=== PATIENT | female | born 1990 | race Caucasian/White ===

== ENCOUNTER 2017-07-11 10:36 | Inpatient (IN) | payer MEDICAID, OTHER ==
[~2017-07-11] VITALS: Ht 154.9 cm; Wt 56.8 kg
[2017-07-11 10:47] VITALS: BP 98/53
[2017-07-11 11:41] LABS: HEMATOCRIT 33.3 % (34.6-47.8); HEMOGLOBIN 11.2 g/dL (11.7-16.4); WHITE BLOOD COUNT 9.5 x10^3/uL (3.4-10)
[2017-07-11] MEDS ORDERED: BETAMETHASONE 6 MG/ML, 5ML IM ONE (13:18)
[2017-07-11] MEDS: BETAMETHASONE 6 MG/ML, 5ML IM SCH (13:24)
[2017-07-11 13:59] LABS: DAU SCREEN DISCLAIMER
[2017-07-11] MEDS ORDERED: PREN-3 PO (14:03)
[2017-07-11] MEDS ORDERED: AMPICILLIN 2 GM in SODIUM CHLORIDE 0.9% 100 ML IV ONE (17:00)
[2017-07-11] MEDS: LACTATED RINGERS 1,000 ML IV SCH (17:04)
[2017-07-11] MEDS ORDERED: MAGNESIUM SULF. PMX 20GM/500ML 500 ML IV ONE (17:27)
[2017-07-11] MEDS: MAGNESIUM SULF. PMX 20GM/500ML 500 ML IV SCH (17:38)
[2017-07-11] MEDS ORDERED: NITROFURANTOIN (MACROBID) 100 MG CAPSULE ONE (17:41)
[2017-07-11] MEDS: NITROFURANTOIN (MACROBID) 100 MG CAPSULE PO SCH (17:42)
[2017-07-11] MEDS ORDERED: INSULIN ASPART 100 UNITS/ML, PEN SQ-INSULIN ONE (19:00)
[2017-07-11] MEDS ORDERED: NITROFURANTOIN (MACROBID) 100 MG CAPSULE PO SCH (21:00)
[2017-07-11] MEDS ORDERED: INSULIN NPH HUMAN 100 UNIT/ML, 3ML VIAL SQ-INSULIN ONE (22:00)
[2017-07-11] MEDS: AMPICILLIN 1 GM in SODIUM CHLORIDE 0.9% 50 ML IV SCH (23:29)
[2017-07-12] MEDS: LACTATED RINGERS 1,000 ML IV SCH ×2 (01:00→16:08)
[2017-07-12] MEDS ORDERED: MAGNESIUM SULF. PMX 20GM/500ML 500 ML IV ONE ×3 (03:36→23:03)
[2017-07-12] MEDS: MAGNESIUM SULF. PMX 20GM/500ML 500 ML IV SCH ×3 (03:40→23:06)
[2017-07-12] MEDS: AMPICILLIN 1 GM in SODIUM CHLORIDE 0.9% 50 ML IV SCH ×4 (05:00→23:01)
[2017-07-12] MEDS ORDERED: INSULIN NPH HUMAN 100 UNIT/ML, 3ML VIAL SQ-INSULIN ONE ×2 (06:30→21:00)
[2017-07-12] MEDS ORDERED: INSULIN ASPART 100 UNITS/ML, PEN SQ-INSULIN ONE ×4 (07:00→20:35)
[2017-07-12 07:30] VITALS: BP 106/63
[2017-07-12] MEDS ORDERED: NITROFURANTOIN (MACROBID) 100 MG CAPSULE ONE (08:53)
[2017-07-12] MEDS: NITROFURANTOIN (MACROBID) 100 MG CAPSULE PO SCH ×3 (08:59→21:21)
[2017-07-12] MEDS ORDERED: INSULIN ASPART 100 UNITS/ML, PEN SQ-INSULIN SCH (09:30)
[2017-07-12] MEDS: BETAMETHASONE 6 MG/ML, 5ML IM SCH (13:24)
[2017-07-12] MEDS ORDERED: DOCUSATE 100 MG CAPSULE ONE (16:10)
[2017-07-12] MEDS ORDERED: PRENATAL VIT/IRON/FA 1 EACH TABLET ONE (16:10)
[2017-07-12] MEDS: DOCUSATE 100 MG CAPSULE PO SCH (16:11)
[2017-07-12] MEDS: PRENATAL VIT/IRON/FA 1 EACH TABLET PO SCH (16:11)
[2017-07-12] MEDS ORDERED: NPH,100V SQ-INSULIN ×2 (16:28→16:30)
[2017-07-12] MEDS ORDERED: ACETAMINOPHEN 325 MG TABLET ONE (19:24)
[2017-07-12] MEDS: ACETAMINOPHEN 325 MG TABLET PO PRN (19:26)
[2017-07-12 23:47] LABS: PATH.CAST-FLAG NOT PRESENT; SPERM-FLAG NOT PRESENT; SRC-FLAG NOT PRESENT; XTAL-FLAG NOT PRESENT; YLC-FLAG NOT PRESENT
[2017-07-13] MEDS: LACTATED RINGERS 1,000 ML IV SCH ×2 (05:00→19:53)
[2017-07-13] MEDS: AMPICILLIN 1 GM in SODIUM CHLORIDE 0.9% 50 ML IV SCH ×4 (05:00→23:11)
[2017-07-13 05:54] LABS: ASPARTATE AMINO TRANSFERASE 7 U/L (15-37); BLOOD UREA NITROGEN 11 mg/dL (7-18)
[2017-07-13] MEDS ORDERED: ACETAMINOPHEN 325 MG TABLET ONE (07:14)
[2017-07-13] MEDS: ACETAMINOPHEN 325 MG TABLET PO PRN (07:15)
[2017-07-13] MEDS ORDERED: INSULIN NPH HUMAN 100 UNIT/ML, 3ML VIAL SQ-INSULIN STA (07:20)
[2017-07-13] MEDS: INSULIN ASPART 100 UNITS/ML, PEN SQ-INSULIN SCH ×2 (07:37→19:56)
[2017-07-13] MEDS: DOCUSATE 100 MG CAPSULE PO SCH ×2 (09:00→21:13)
[2017-07-13] MEDS: NITROFURANTOIN (MACROBID) 100 MG CAPSULE PO SCH ×2 (09:42→21:12)
[2017-07-13] MEDS ORDERED: PRENATAL VIT/IRON/FA 1 EACH TABLET ONE (09:46)
[2017-07-13] MEDS ORDERED: MAGNESIUM SULF. PMX 20GM/500ML 500 ML IV ONE ×2 (09:48→19:45)
[2017-07-13] MEDS: MAGNESIUM SULF. PMX 20GM/500ML 500 ML IV SCH ×2 (09:49→19:52)
[2017-07-13] MEDS ORDERED: INSULIN ASPART 100 UNITS/ML, PEN SQ-INSULIN SCH (17:30)
[2017-07-13] MEDS ORDERED: INSULIN ASPART 100 UNITS/ML, PEN SQ-INSULIN ONE (18:25)
[2017-07-13] MEDS ORDERED: INSULIN NPH HUMAN 100 UNIT/ML, 3ML VIAL SQ-INSULIN ONE (21:00)
[2017-07-14] MEDS: AMPICILLIN 1 GM in SODIUM CHLORIDE 0.9% 50 ML IV SCH ×2 (05:18→11:18)
[2017-07-14] MEDS ORDERED: MAGNESIUM SULF. PMX 20GM/500ML 500 ML IV ONE (05:54)
[2017-07-14] MEDS: MAGNESIUM SULF. PMX 20GM/500ML 500 ML IV SCH (05:56)
[2017-07-14] MEDS: INSULIN ASPART 100 UNITS/ML, PEN SQ-INSULIN SCH (07:00)
[2017-07-14] MEDS ORDERED: INSULIN NPH HUMAN 100 UNIT/ML, 3ML VIAL SQ-INSULIN ONE ×2 (07:30→21:00)
[2017-07-14] MEDS ORDERED: PRENATAL VIT/IRON/FA 1 EACH TABLET ONE (09:23)
[2017-07-14] MEDS ORDERED: DOCUSATE 100 MG CAPSULE ONE (09:23)
[2017-07-14 09:35] VITALS: BP 92/50
[2017-07-14] MEDS: PRENATAL VIT/IRON/FA 1 EACH TABLET PO SCH (09:42)
[2017-07-14] MEDS: DOCUSATE 100 MG CAPSULE PO SCH ×2 (09:42→22:49)
[2017-07-14] MEDS: NITROFURANTOIN (MACROBID) 100 MG CAPSULE PO SCH ×2 (10:01→21:06)
[2017-07-14] MEDS ORDERED: INSULIN ASPART 100 UNITS/ML, PEN SQ-INSULIN ONE (11:00)
[2017-07-14] MEDS: LACTATED RINGERS 1,000 ML IV SCH (11:15)
[2017-07-14 15:05] VITALS: BP 99/55
[2017-07-14] MEDS ORDERED: INSULIN ASPART 100 UNITS/ML, PEN SQ-INSULIN SCH ×2 (16:00→22:00)
[2017-07-14] MEDS ORDERED: MAGNESIUM SULF. PMX 20GM/500ML 500 ML IV SCH (17:21)
[2017-07-14] MEDS: AMPICILLIN 500MG CAPSULE PO SCH ×2 (17:25→21:06)
[2017-07-14] MEDS ORDERED: ACETAMINOPHEN 325 MG TABLET PO PRN (19:30)
[2017-07-15 07:20] VITALS: BP 99/54
[2017-07-15] MEDS ORDERED: INSULIN NPH HUMAN 100 UNIT/ML, 3ML VIAL SQ-INSULIN ONE (07:30)
[2017-07-15] MEDS ORDERED: INSULIN ASPART 100 UNITS/ML, PEN SQ-INSULIN ONE (07:30)
[2017-07-15] MEDS: DOCUSATE 100 MG CAPSULE PO SCH (09:00)
[2017-07-15] MEDS ORDERED: DOCUSATE 100 MG CAPSULE ONE (10:29)
[2017-07-15] MEDS ORDERED: PRENATAL VIT/IRON/FA 1 EACH TABLET ONE (10:29)
[2017-07-15] MEDS ORDERED: NITROFURANTOIN (MACROBID) 100 MG CAPSULE ONE (10:29)
[2017-07-15] MEDS: PRENATAL VIT/IRON/FA 1 EACH TABLET PO SCH (10:30)
[2017-07-15] MEDS: NITROFURANTOIN (MACROBID) 100 MG CAPSULE PO SCH ×2 (10:30→21:06)
[2017-07-15 19:45] VITALS: BP 95/55
[2017-07-16] MEDS: INSULIN ASPART 100 UNITS/ML, PEN SQ-INSULIN SCH ×2 (07:49→17:31)
[2017-07-16] MEDS ORDERED: INSULIN NPH HUMAN 100 UNIT/ML, 3ML VIAL SQ-INSULIN ONE ×2 (08:00→21:00)
[2017-07-16 09:00] VITALS: BP 104/56
[2017-07-16] MEDS ORDERED: PRENATAL VIT/IRON/FA 1 EACH TABLET ONE (09:12)
[2017-07-16] MEDS ORDERED: DOCUSATE 100 MG CAPSULE ONE (09:12)
[2017-07-16] MEDS ORDERED: NITROFURANTOIN (MACROBID) 100 MG CAPSULE ONE (09:13)
[2017-07-16] MEDS: PRENATAL VIT/IRON/FA 1 EACH TABLET PO SCH (09:17)
[2017-07-16] MEDS: NITROFURANTOIN (MACROBID) 100 MG CAPSULE PO SCH ×2 (09:17→21:01)
[2017-07-16] MEDS: DOCUSATE 100 MG CAPSULE PO SCH (09:18)
[2017-07-16 18:05] VITALS: BP 102/60
[2017-07-16 19:53] VITALS: BP 111/65
[2017-07-17] MEDS ORDERED: INSULIN NPH HUMAN 100 UNIT/ML, 3ML VIAL SQ-INSULIN ONE (06:00)
[2017-07-17] MEDS: INSULIN ASPART 100 UNITS/ML, PEN SQ-INSULIN SCH (07:42)
[2017-07-17] MEDS ORDERED: INSULIN ASPART 100 UNITS/ML, PEN SQ-INSULIN ONE ×2 (08:00→10:00)
[2017-07-17] MEDS ORDERED: NITROFURANTOIN (MACROBID) 100 MG CAPSULE ONE (08:52)
[2017-07-17] MEDS ORDERED: PRENATAL VIT/IRON/FA 1 EACH TABLET ONE (08:52)
[2017-07-17] MEDS: NITROFURANTOIN (MACROBID) 100 MG CAPSULE PO SCH ×2 (08:53→13:13)
[2017-07-17] MEDS: PRENATAL VIT/IRON/FA 1 EACH TABLET PO SCH (08:53)
[2017-07-17] MEDS ORDERED: INSU100V14 SQ-INSULIN (13:00)
== END 2017-07-17 13:20 | disposition home or self-care (01) | DRG 781 ==
LOC: LDOP 10:36 → LDIP 11:18 → OBSVTOIN 13:13 → LDIP 17:31
PROVIDERS: ADMIT Obstetrics & Gynecology; ATTEND Obstetrics & Gynecology
DX: O44.32 Partial placenta previa with hemorrhage, second trimester (principal); O23.12 Infections of bladder in pregnancy, second trimester; O26.872 Cervical shortening, second trimester; E11.65 Type 2 diabetes mellitus with hyperglycemia; O24.112 Pre-existing type 2 diabetes mellitus, in pregnancy, second trimester; Z3A.26 26 weeks gestation of pregnancy; Z79.4 Long term (current) use of insulin; Z91.19 Patient's noncompliance with other medical treatment and regimen; B96.89 Other specified bacterial agents as the cause of diseases classified elsewhere
CPT/HCPCS: 36415; 76805; 76817; 80053; 80307; 81001; 82962; 83036; 84443; 85025; 85460; 86850; 86900; 87077; 87081; 87086; 87147; 87186; G0378; J0290; J0702; J1815; G0479; J3475; J7120